=== PATIENT | female | born 1995 | race Two or more races ===

== ENCOUNTER 2020-01-02 21:28 | Emergency (ER) | payer MEDICAID ==
[~2020-01-02] VITALS: Ht 170.2 cm; Wt 59.0 kg
[2020-01-02 21:40] VITALS: BP 123/89
[2020-01-02] MEDS ORDERED: OMEPRAZOLE20 M3 ORAL (21:41)
--- NOTE | 2020-01-02 22:18 | Diagnostic Imaging Report ---
INDICATION: Chest pain COMPARISON: Unavailable. FINDINGS: Single frontal view demonstrates a normal cardiomediastinal silhouette. No focal consolidation, pleural effusion or pneumothorax. The visualized osseous structures are within normal limits. IMPRESSION: No acute cardiopulmonary disease.
--- NOTE | 2020-01-02 22:23 | Diagnostic Imaging Report ---
EXAM: XR Abdomen, 2 Views CLINICAL HISTORY: CP TECHNIQUE: Frontal view of the abdomen/pelvis COMPARISON: No relevant prior studies available. FINDINGS: No bowel dilatation or evidence of bowel obstruction. No pathologic calcifications are identified. Osseous structures are unremarkable. IMPRESSION: Normal abdominal x-rays.
[2020-01-02] MEDS ORDERED: Omnipaque-300 100ml vial INJ ONE (22:30)
[2020-01-02 22:32] VITALS: BP 108/70
[2020-01-02 22:36] LABS: ANION GAP 12 mmol/L (5-15); BASOPHILS % (AUTO) 1.1 % (0.0-2.0); BLOOD UREA NITROGEN 13 mg/dL (7-18); CALCIUM 9.7 MG/DL (8.5-10.1); CARBON DIOXIDE 25 MMOL/L (21-32); CHLORIDE 104 MMOL/L (98-107); EOSINOPHILS % (AUTO) 0.5 % (0.0-3.0); HEMOGLOBIN 11.8 G/DL (12.0-16.0); LYMPHOCYTES % (AUTO) 27.5 % (20.0-45.0); MEAN CORPUSCULAR VOLUME 92 FL (80-99); MONOCYTES % (AUTO) 7.1 % (1.0-10.0); NEUTROPHILS % (AUTO) 63.8 % (45.0-75.0); PLATELET COUNT 210 K/UL (150-450); POTASSIUM 3.4 MMOL/L (3.5-5.1); RED CELL DISTRIBUTION WIDTH 12.5 % (11.6-14.8); SODIUM 141 MMOL/L (136-145); WHITE BLOOD COUNT 8.1 K/UL (4.8-10.8)
[2020-01-02 22:41] LABS: ALANINE AMINOTRANSFERASE 12 U/L (12-78); ALBUMIN 4.4 G/DL (3.4-5.0); ALBUMIN/GLOBULIN RATIO 1.3 (1.0-2.7); ALKALINE PHOSPHATASE 59 U/L (46-116); ASPARTATE AMINO TRANSFERASE 7 U/L (15-37); BILIRUBIN,TOTAL 0.4 MG/DL (0.2-1.0)
--- NOTE | 2020-01-02 23:55 | Diagnostic Imaging Report ---
EXAM: CT Abdomen and Pelvis With Intravenous Contrast CLINICAL HISTORY: CP TECHNIQUE: Axial computed tomography images of the abdomen and pelvis with intravenous contrast. CTDI is 3.8 mGy and DLP is 193.4 mGy-cm. One or more of the following dose reduction techniques were used: automated exposure control, adjustment of the mA and/or kV according to patient size, use of iterative reconstruction technique. COMPARISON: No relevant prior studies available. FINDINGS: ABDOMEN: Liver: 16 mm right hepatic lobe lesion likely representing a hemangioma (8:27). Gallbladder and bile ducts: Unremarkable. No calcified stones. No ductal dilation. Pancreas: Unremarkable. No mass. No ductal dilation. Spleen: Unremarkable. No splenomegaly. Adrenals: Unremarkable. No mass. Kidneys and ureters: Unremarkable. No solid mass. No hydronephrosis. Stomach and bowel: Unremarkable. No obstruction. No mucosal thickening. PELVIS: Appendix: Normal appendix (55). Bladder: Unremarkable. No mass. Reproductive: Bilateral physiologic ovarian follicles. The uterus is normal in size. ABDOMEN and PELVIS: Intraperitoneal space: Mild volume pelvic ascites, likely physiologic. Bones/joints: No acute fracture. No dislocation. Soft tissues: Unremarkable. Vasculature: Unremarkable. No abdominal dissection or aortic aneurysm. Lymph nodes: Unremarkable. No enlarged lymph nodes. IMPRESSION: 1. No acute process within the abdomen or pelvis. 2. Incidental note is made of a probable 16 mm right hepatic lobe hemangioma. EXAM: CT Chest With Intravenous Contrast CLINICAL HISTORY: CP TECHNIQUE: Axial computed tomography images of the chest with intravenous contrast. CTDI is 3.2 mGy and DLP is 122.2 mGy-cm. One or more of the following dose reduction techniques were used: automated exposure control, adjustment of the mA and/or kV according to patient size, use of iterative reconstruction technique. COMPARISON: No relevant prior studies available. FINDINGS: Lungs: Unremarkable. No mass. No consolidation. No suspicious pulmonary nodules. Pleural space: Unremarkable. No pneumothorax. No effusion. Heart: Unremarkable. No cardiomegaly. No significant pericardial effusion. No central pulmonary embolus seen on this non-CT - study. Bones/joints: Unremarkable. No acute fracture. No dislocation. Soft tissues: Unremarkable. Vasculature: Unremarkable. No thoracic aortic dissection or aneurysm. Lymph nodes: Unremarkable. No enlarged lymph nodes. IMPRESSION: Normal chest CT.
--- NOTE | 2020-01-03 00:08 | Emergency Room Report ---
History of Present Illness General Chief Complaint: Palpitations Source: Patient Present Illness HPI 24-year-old female presents the ED for evaluation of chest pain abdominal pain. States symptoms started 2 days ago after she had an endoscopy and colonoscopy done at outpatient GI center. States that she was discharged home. States that since then she has been noticing palpitations and intermittent chest pain and abdominal pain. Denies any chest pain or abdominal pain at this time. States she is not had a bowel movement and she has been passing gas. Denies fevers or chills. Denies nausea or vomiting no other aggravating relieving factors. 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: No Patient History Past Medical History: GERD Past Surgical History: other - Endoscopy/colonoscopy Pertinent Family History: none Social History: Denies: smoking, alcohol use, drug use Last Menstrual Period: 12/07/19 Now: No Immunizations: UTD Reviewed Nursing Documentation: PMH: Agreed; PSxH: Agreed Nursing Documentation-PMH Past Medical History: No History, Except For Hx Gastrointestinal Problems: Yes Review of Systems All Other Systems: negative except mentioned in HPI Physical Exam Vital Signs Date Time Temp Pulse Resp B/P (MAP) Pulse Ox O2 Delivery O2 Flow Rate FiO2 01/02/20 21:36 98.4 84 16 123/89 (100) 97 Room Air Sp02 EP Interpretation: reviewed, normal General Appearance: no apparent distress, alert, GCS 15, non-toxic Head: normocephalic, atraumatic Eyes: bilateral eye normal inspection, bilateral eye PERRL ENT: hearing grossly normal, normal pharynx, no angioedema, normal voice Neck: full range of motion, supple/symm/no masses Respiratory: chest non-tender, lungs clear, normal breath sounds, speaking full sentences Cardiovascular #1: regular rate, rhythm, no edema Cardiovascular #2: 2+ carotid (R), 2+ carotid (L), 2+ radial (R), 2+ radial (L) , 2+ dorsalis pedis (R), 2+ dorsalis pedis (L) Gastrointestinal: normal bowel sounds, non tender, soft, non-distended, no guarding, no rebound Rectal: deferred Genitourinary: normal inspection, no CVA tenderness Musculoskeletal: back normal, normal range of motion, gait/station normal, non- tender Neurologic: alert, motor strength/tone normal, oriented x3, sensory intact, responsive, speech normal Psychiatric: judgement/insight normal, memory normal, mood/affect normal, no suicidal/homicidal ideation Reflexes: 3+ bicep (R), 3+ bicep (L), 3+ tricep (R), 3+ tricep (L), 3+ knee (R) , 3+ knee (L) Lymphatic: no adenopathy Medical Decision Making Diagnostic Impression: Primary Impression: Palpitations Additional Impressions: Constipation Qualified Codes: K59.00 - Constipation, unspecified Hemangioma Qualified Codes: D18.03 - Hemangioma of intra-abdominal structures ER Course Hospital Course 24-year-old female presents with chest pain, abdominal pain, palpitations. Status post colonoscopy and endoscopy 2 days ago Differential diagnosis includes-appendicitis, cholecystitis, small bowel obstruction, gastritis, Clinical course Patient placed on stretcher. After initial history and physical I ordered labs , IV fluids, EKG, CXR, CT Labs - no leukocytosis, electrolytes ok , LFTs normal, UA unremarkable, trop negative CXR - no acute process ABD Xray - no free air, no SBO, fecal imapction noted CT scan shows liver hemangioma, no signs of obstruction or perforation I discussed findings with patient. Reassurance given. During ED course patient has had episodes of arrhythmia. Patient states he is arrhythmia symptoms started shortly after her procedure. Could be related to anesthesia or other medications administered. possibly temporary I recommend close follow-up with GI and possible outpatient cardiology evaluation if arrhythmia continues. Given copy of CT report. States she has a PMD. I feel this is a highly complex case requiring extensive working including EKG/ Rhythm strip, Xray/CT/US, Blood/urine lab work, repeat exams while in ED, and administration of strong opiates/narcotics for pain control, admission to hospital or close patient follow up. Diagnosis - palpitations, constipation, hemangioma Stable and discharged to home with Rx Miralax. Followup with PMD/GI/ cardiology. Return to ED if symptoms recur or worsen Laboratory Tests Test 01/02/20 22:00 01/02/20 22:11 01/02/20 22:50 Urine HCG, Qualitative Negative (NEGATIVE) White Blood Count 8.1 K/UL (4.8-10.8) Red Blood Count 3.90 M/UL (4.20-5.40) L Hemoglobin 11.8 G/DL (12.0-16.0) L Hematocrit 36.0 % (37.0-47.0) L Mean Corpuscular Volume 92 FL (80-99) Mean Corpuscular Hemoglobin 30.2 PG (27.0-31.0) Mean Corpuscular Hemoglobin Concent 32.8 G/DL (32.0-36.0) Red Cell Distribution Width 12.5 % (11.6-14.8) Platelet Count 210 K/UL (150-450) Mean Platelet Volume 7.1 FL (6.5-10.1) Neutrophils (%) (Auto) 63.8 % (45.0-75.0) Lymphocytes (%) (Auto) 27.5 % (20.0-45.0) Monocytes (%) (Auto) 7.1 % (1.0-10.0) Eosinophils (%) (Auto) 0.5 % (0.0-3.0) Basophils (%) (Auto) 1.1 % (0.0-2.0) Sodium Level 141 MMOL/L (136-145) Potassium Level 3.4 MMOL/L (3.5-5.1) L Chloride Level 104 MMOL/L (98-107) Carbon Dioxide Level 25 MMOL/L (21-32) Anion Gap 12 mmol/L (5-15) Blood Urea Nitrogen 13 mg/dL (7-18) Creatinine 1.0 MG/DL (0.55-1.30) Estimat Glomerular Filtration Rate > 60 mL/min (>60) Glucose Level 106 MG/DL (74-106) Calcium Level 9.7 MG/DL (8.5-10.1) Total Bilirubin 0.4 MG/DL (0.2-1.0) Aspartate Amino Transf (AST/SGOT) 7 U/L (15-37) L Alanine Aminotransferase (ALT/SGPT) 12 U/L (12-78) Alkaline Phosphatase 59 U/L (46-116) Troponin I 0.000 ng/mL (0.000-0.056) Total Protein 7.8 G/DL (6.4-8.2) Albumin 4.4 G/DL (3.4-5.0) Globulin 3.4 g/dL Albumin/Globulin Ratio 1.3 (1.0-2.7) Human Chorionic Gonadotropin, Qual Negative (NEGATIVE) EKG Diagnostic Results Rate: normal Rhythm: NSR ST Segments: no acute changes ASA given to the pt in ED: No Rhythm Strip Diag. Results EP Interpretation: yes Rhythm: NSR, no PVC's, no ectopy Chest X-Ray Diagnostic Results Chest X-Ray Diagnostic Results : Chest X-Ray Ordered: Yes # of Views/Limited/Complete: 1 View Indication: Chest Pain EP Interpretation: Yes Interpretation: no consolidation, no effusion, no pneumothorax, no acute cardiopulmonary disease Impression: No acute disease Electronically Signed by: Electronically signed by Lv Yañez MD Other X-Ray Diagnostic Results Other X-Ray Diagnostic Results : X-Ray ordered: KUB # of Views/Limited Vs Complete: 1 View Indication: Pain EP Interpretation: Yes Interpretation: nonspecific bowel gas, no sbo, other - fecal impaction Impression: No acute disease Electronically Signed by: Electronically signed by Lv Yañez MD CT/MRI/US Diagnostic Results CT/MRI/US Diagnostic Results : Imaging Test Ordered: CT Chest/Abd/Pelvis Impression Procedure: CT Chest Abdomen Pelvis w/Cont EXAM: CT Abdomen and Pelvis With Intravenous Contrast CLINICAL HISTORY: CP TECHNIQUE: Axial computed tomography images of the abdomen and pelvis with intravenous contrast. CTDI is 3.8 mGy and DLP is 193.4 mGy-cm. One or more of the following dose reduction techniques were used: automated exposure control, adjustment of the mA and/or kV according to patient size, use of iterative reconstruction technique. COMPARISON: No relevant prior studies available. FINDINGS: ABDOMEN: Liver: 16 mm right hepatic lobe lesion likely representing a hemangioma (8:27). Gallbladder and bile ducts: Unremarkable. No calcified stones. No ductal dilation. Pancreas: Unremarkable. No mass. No ductal dilation. Spleen: Unremarkable. No splenomegaly. Adrenals: Unremarkable. No mass. Kidneys and ureters: Unremarkable. No solid mass. No hydronephrosis. Stomach and bowel: Unremarkable. No obstruction. No mucosal thickening. PELVIS: Appendix: Normal appendix (55). Bladder: Unremarkable. No mass. Reproductive: Bilateral physiologic ovarian follicles. The uterus is normal in size. ABDOMEN and PELVIS: Intraperitoneal space: Mild volume pelvic ascites, likely physiologic. Bones/joints: No acute fracture. No dislocation. Soft tissues: Unremarkable. Vasculature: Unremarkable. No abdominal dissection or aortic aneurysm. Lymph nodes: Unremarkable. No enlarged lymph nodes. IMPRESSION: 1. No acute process within the abdomen or pelvis. 2. Incidental note is made of a probable 16 mm right hepatic lobe hemangioma. EXAM: CT Chest With Intravenous Contrast CLINICAL HISTORY: CP TECHNIQUE: Axial computed tomography images of the chest with intravenous contrast. CTDI is 3.2 mGy and DLP is 122.2 mGy-cm. One or more of the following dose reduction techniques were used: automated exposure control, adjustment of the mA and/or kV according to patient size, use of iterative reconstruction technique. COMPARISON: No relevant prior studies available. FINDINGS: Lungs: Unremarkable. No mass. No consolidation. No suspicious pulmonary nodules. Pleural space: Unremarkable. No pneumothorax. No effusion. Heart: Unremarkable. No cardiomegaly. No significant pericardial effusion. No central pulmonary embolus seen on this non-CT - study. Bones/joints: Unremarkable. No acute fracture. No dislocation. Soft tissues: Unremarkable. Vasculature: Unremarkable. No thoracic aortic dissection or aneurysm. Lymph nodes: Unremarkable. No enlarged lymph nodes. IMPRESSION: Normal chest CT. Dictated By: Fortunato Cruz M.D. Electronically Signed By: Fortunato Cruz M.D. Signed Date/Time 01/02/20 [id number] CC: Lv Yañez MD Last Vital Signs Date Time Temp Pulse Resp B/P (MAP) Pulse Ox O2 Delivery O2 Flow Rate FiO2 01/02/20 22:32 98.4 65 12 108/70 100 Room Air Status: improved Disposition: HOME, SELF-CARE Condition: Stable Scripts Polyethylene Glycol 3350* (MIRALAX*) 17 Gm Powd.pack 17 GM ORAL DAILY, #10 PACKET Prov: Lv Yañez MD 01/03/20 Referrals: NON PHYSICIAN (PCP) Lv Yañez MD Jan 03, 2020 00:07
[2020-01-03] MEDS ORDERED: MIRALAX17 G2 ORAL (00:35)
[2020-01-03 00:45] VITALS: BP 114/74
== END 2020-01-03 00:46 | disposition home or self-care (01) ==
LOC: EMR 21:54
DX: R00.2 Palpitations (principal); K59.00 Constipation, unspecified; D18.03 Hemangioma of intra-abdominal structures; K21.9 Gastro-esophageal reflux disease without esophagitis
CPT/HCPCS: 36415; 71045; 71260; 74018; 74177; 80053; 81025; 84484; 84703; 85025; 93005; 96374; Q9965; S0028; Z7502; 99284